=== PATIENT | female | born 1960 | race African-American/Black ===

== ENCOUNTER 2021-12-24 08:16 | Outpatient (CLI) | payer BC | END 2021-12-24 08:17 | disposition home or self-care (01) | LOC: CSHMAMMO 08:16 | PROVIDERS: ATTEND Obstetrics & Gynecology | DX: Z12.31 Encounter for screening mammogram for malignant neoplasm of breast (principal) | CPT/HCPCS: 77063; 77067 ==

== ENCOUNTER 2024-02-10 12:43 | Outpatient (CLI) | payer BC | END 2024-02-10 12:44 | disposition home or self-care (01) | LOC: CSHMAMMO 12:43 | PROVIDERS: ATTEND Internal Medicine | DX: Z12.31 Encounter for screening mammogram for malignant neoplasm of breast (principal) | CPT/HCPCS: 77063; 77067 ==